=== PATIENT | female | born 1955 ===

== ENCOUNTER 2024-08-28 14:12 | Outpatient (CLI) | payer MEDICARE, OTHER, SELFPAY ==
--- NOTE | 2024-08-28 14:17 | CT_ITS ---
WS: [id number] CT CALCIUM SCORE REASON FOR VISIT: FAMILY HISTORY OF PREMATURE CHD; Coronary artery disease risk assessment COMPARISON: None TECHNIQUE: Noncontrast coronary CT in combination with quantitative analysis performed on a separate workstation were used to determine CACS (Agatston score) TOTAL EXAM DOSE: 36.96 mGy.cm ECG GATING: Prospective SCAN RANGE: Pulmonary artery bifurcation to Inferior aspect of heart COMPLICATIONS: None FINDINGS: Technical Quality/Examination Quality: Good Limitations: None OVERALL SCORES Total calcium score: 256 Total volume score: 204 mm3 Percentile: 75th and 90th % ARTERY SCORES Left main coronary artery: 114 Left anterior descending artery: 19 Left circumflex artery: 0 Right coronary artery: 123 OTHER FINDINGS: No mediastinal abnormality noted on this limited exam. MINIMAL: 1-10 MILD: 11-100 MODERATE: 101-400 SEVERE:>400 CT/CT heart w calcium score 47084 IMPRESSION: 1. Total calcium score of 256 places a potation between the 75th and 90th perce ntile for females of her age. 2. Moderately increased risk for cardiovascular event. GRADING OF CORONARY ARTERY DISEASE (BASED ON TOTAL CALCIUM SCORE) NO EVIDENCE OF CAD: 0 calcium score
== END 2024-08-28 14:13 | disposition home or self-care (01) ==
PROVIDERS: PCP Family Medicine; Visit Provider Family Medicine
DX: Z82.49 Family history of ischemic heart disease and other diseases of the circulatory system (principal); E78.5 Hyperlipidemia, unspecified
CPT/HCPCS: 75571